=== PATIENT | female | born 1980 | race Caucasian/White ===

== ENCOUNTER 2017-06-09 08:52 | Observation (INO) ==
[2017-06-09] MEDS ORDERED: Ondansetron ODT 4 MG TAB.RAPDIS SL ONE (09:30)
[2017-06-09 10:01] LABS: Basophils % 0.2 %; Eosinophils # 0.2 K/mcL (0.0-0.6); Eosinophils % 1.7 %; Hematocrit 39.9 % (35.3-44.9); Hemoglobin 13.6 g/dL (11.5-15.4); Immature Granulocytes % 0.4 % (0-4); Lymphocytes # 2.3 K/mcL (0.6-4.6); Lymphocytes % 23.7 %; Mean Corpuscular HGB Conc 34.1 g/dL (31.6-35.5); Mean Corpuscular Hemoglobin 29.4 pg (28.0-33.3); Mean Corpuscular Volume 86.2 fL (83.0-100.0); Monocytes # 0.8 K/mcL (0.0-1.3); Monocytes % 8.1 %; Neutrophils # 6.3 K/mcL (1.6-8.9); Platelet Count 225 K/mcL (140-400); Red Blood Count 4.63 M/mcL (3.82-4.97); Red Cell Distribution Width 13.5 % (11.5-14.5); Segmented Neutrophils % 65.9 %
[2017-06-09 10:03] LABS: Bilirubin,Urine Negative (Negative); Blood,Urine Negative (Negative); Clarity,Urine Clear (Clear); Color,Urine Yellow (Yellow); Glucose,Urine (UA) Normal (Normal); Ketones,Urine Negative (Negative); Leukocyte Esterase,Urine Negative (Negative); Nitrite,Urine Negative (Negative); PH,Urine 6.5 pH Units (5.0-8.0); Protein,Urine Trace mg/dL (Neg-Trace); Specific Gravity,Urine 1.025 (1.010-1.025)
[2017-06-09 10:16] LABS: Alanine Aminotransferase 77 Units/L (0-55); Albumin 3.6 g/dL (3.5-5.0); Albumin/Globulin Ratio 0.9 (1.1-2.2); Alkaline Phosphatase 83 Units/L (38-126); Amylase 155 Units/L (25-125); Aspartate Amino Transferase 45 Units/L (5-34); BUN/Creatinine Ratio 12 (6-26); Bilirubin,Total 0.9 mg/dL (0.2-1.2); Blood Urea Nitrogen 10 mg/dL (7-20); Calcium 9.7 mg/dL (8.6-10.8); Carbon Dioxide 24 mEq/L (19-29); Chloride 106 mEq/L (98-109); Glucose 90 mg/dL (70-99); Lipase 416 Units/L (8-78); Osmolality,Calculated 289 (280-300); Potassium 4.4 mEq/L (3.5-4.5); Sodium 140 mEq/L (136-145); Total Protein 7.6 g/dL (6.0-8.3); eGFR For African Americans > 60 (> 60); eGFR For Non-African Americans > 60 (> 60)
--- NOTE | 2017-06-09 10:50 | Emergency Department Note ---
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 She has had several bouts of emesis since then. She remains nauseated. No urinary symptoms although she has not had a urination since the onset of symptoms. No fever no chills. She has not had pain like this before. Her appendix and gallbladder have been surgically removed. She is not drinking alcohol. Pt Subjective Complaint: abdominal pain Pain Scale: 5 - Related Data Home Medications Medication Instructions Recorded Confirmed Levothyroxine [Synthroid] 50 mcg PO DAILY 09/05/15 06/09/17 Allergies Allergy/AdvReac Type Severity Reaction Status Date / Time No Known Allergies Allergy Verified 06/09/17 08:59 Constitutional: Denies: fever, chills Cardiovascular: Denies: chest pain Respiratory: Denies: cough, dyspnea Gastrointestinal: Reports: as per HPI (Habits are daily and soft. She has not had a bowel movement yet today.), abdominal pain, nausea, vomiting. Denies: diarrhea Genitourinary: Denies: urgency, dysuria, frequency, hematuria Musculoskeletal: Reports: as per HPI, back pain. 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 Absent: respiratory distress - Cardiovascular Cardiovascular exam: Present: regular rate, normal rhythm, normal heart sounds - Abdominal Exam Abdominal exam: Present: soft, tenderness (Epigastric pain to palpation.), normal bowel sounds. Absent: distention, guarding, rebound, rigidity - Extremities Exam Extremities exam: Present: normal inspection. Absent: pedal edema - Back Exam Back exam: Absent: CVA tenderness (R), CVA tenderness (L) - Neurological Exam Neurological exam: Present: alert - Psychiatric Psychiatric exam: Present: normal affect, normal mood - Skin Skin exam: Present: warm, dry Course Vital Signs Temperature 97.7 F 06/09/17 09:00 Pulse Rate 78 06/09/17 09:00 Respiratory Rate 16 06/09/17 09:00 Blood Pressure 152/87 06/09/17 09:00 O2 Sat by Pulse Oximetry 99 06/09/17 09:00 Temperature 97.7 F 06/09/17 11:45 Pulse Rate 78 06/09/17 09:00 Respiratory Rate 16 06/09/17 11:45 Blood Pressure 157/80 06/09/17 11:45 O2 Sat by Pulse Oximetry 99 06/09/17 09:00 Oxygen Delivery Oxygen Delivery Room Air Abdominal Pain - MDM Narrative Medical decision making narrative: Pancreatitis. Etiology unknown. Prudent to admit for IV hydration and bowel rest. I spoke with the [facility] and presented the case. He accepted admission. Orders were written by me and Ms. Saenz was transferred to the floor in good condition. She is in agreement with the admission after I explained the pathophysiology of this ailment in layman's terms. - Lab Data Lab results reviewed: Yes I reviewed the patient's lab results. Result diagrams: 06/09/17 09:52 06/09/17 09:52 Lab Results 06/09/17 06/09/17 06/09/17 Range/Units 09:39 09:52 09:52 WBC 9.6 (4.3-11.1) K/mcL RBC 4.63 (3.82-4.97) M/mcL Hgb 13.6 (11.5-15.4) g/dL Hct 39.9 (35.3-44.9) % MCV 86.2 (83.0-100.0) fL MCH 29.4 (28.0-33.3) pg MCHC 34.1 (31.6-35.5) g/dL RDW 13.5 (11.5-14.5) % Plt Count 225 (140-400) K/mcL MPV 9.0 L (9.4-12.4) fL Immature Gran % 0.4 (0-4) % Seg Neutrophils % 65.9 % Lymphocytes % 23.7 % Monocytes % 8.1 % Eosinophils % 1.7 % Basophils % 0.2 % Neutrophils # 6.3 (1.6-8.9) K/mcL Lymphocytes # 2.3 (0.6-4.6) K/mcL Monocytes # 0.8 (0.0-1.3) K/mcL Eosinophils # 0.2 (0.0-0.6) K/mcL Basophils # 0.0 (0.0-0.2) K/mcL Sodium 140 (136-145) mEq/L Potassium 4.4 (3.5-4.5) mEq/L Chloride 106 (98-109) mEq/L Carbon Dioxide 24 (19-29) mEq/L BUN 10 (7-20) mg/dL Creatinine 0.81 (0.57-1.11) mg/dL Est GFR ( Amer) > 60 (> 60) Est GFR (Non-Af Amer) > 60 (> 60) BUN/Creatinine Ratio 12 (6-26) Glucose 90 (70-99) mg/dL Calculated Osmolality 289 (280-300) Calcium 9.7 (8.6-10.8) mg/dL Total Bilirubin 0.9 (0.2-1.2) mg/dL AST 45 H (5-34) Units/L ALT 77 H (0-55) Units/L Alkaline Phosphatase 83 (38-126) Units/L Serum Total Protein 7.6 (6.0-8.3) g/dL Albumin 3.6 (3.5-5.0) g/dL Globulin 4.0 H (2.4-3.5) g/dL Albumin/Globulin Ratio 0.9 L (1.1-2.2) Amylase 155 H (25-125) Units/L Lipase 416 H (8-78) Units/L Urine Color (Yellow) Urine Clarity (Clear) Urine pH (5.0-8.0) pH Units Ur Specific [place] (1.010-1.025) Urine Protein (Neg-Trace) mg/dL Urine Glucose (UA) (Normal) mg/dL Urine Ketones (Negative) mg/dL Urine Blood (Negative) Urine Nitrite (Negative) Urine Bilirubin (Negative) Urine Urobilinogen (Normal) mg/dL Ur Leukocyte Esterase (Negative) Urine Test Negative (Negative) 06/09/17 Range/Units 09:52 WBC (4.3-11.1) K/mcL RBC (3.82-4.97) M/mcL Hgb (11.5-15.4) g/dL Hct (35.3-44.9) % MCV (83.0-100.0) fL MCH (28.0-33.3) pg MCHC (31.6-35.5) g/dL RDW (11.5-14.5) % Plt Count (140-400) K/mcL MPV (9.4-12.4) fL Immature Gran % (0-4) % Seg Neutrophils % % Lymphocytes % % Monocytes % % Eosinophils % % Basophils % % Neutrophils # (1.6-8.9) K/mcL Lymphocytes # (0.6-4.6) K/mcL Monocytes # (0.0-1.3) K/mcL Eosinophils # (0.0-0.6) K/mcL Basophils # (0.0-0.2) K/mcL Sodium (136-145) mEq/L Potassium (3.5-4.5) mEq/L Chloride (98-109) mEq/L Carbon Dioxide (19-29) mEq/L BUN (7-20) mg/dL Creatinine (0.57-1.11) mg/dL Est GFR ( Amer) (> 60) Est GFR (Non-Af Amer) (> 60) BUN/Creatinine Ratio (6-26) Glucose (70-99) mg/dL Calculated Osmolality (280-300) Calcium (8.6-10.8) mg/dL Total Bilirubin (0.2-1.2) mg/dL AST (5-34) Units/L ALT (0-55) Units/L Alkaline Phosphatase (38-126) Units/L Serum Total Protein (6.0-8.3) g/dL Albumin (3.5-5.0) g/dL Globulin (2.4-3.5) g/dL Albumin/Globulin Ratio (1.1-2.2) Amylase (25-125) Units/L Lipase (8-78) Units/L Urine Color Yellow (Yellow) Urine Clarity Clear (Clear) Urine pH 6.5 (5.0-8.0) pH Units Ur Specific [place] 1.025 (1.010-1.025) Urine Protein Trace (Neg-Trace) mg/dL Urine Glucose (UA) Normal (Normal) mg/dL Urine Ketones Negative (Negative) mg/dL Urine Blood Negative (Negative) Urine Nitrite Negative (Negative) Urine Bilirubin Negative (Negative) Urine Urobilinogen 2.0 H (Normal) mg/dL Ur Leukocyte Esterase Negative (Negative) Urine Test (Negative) - Radiology Data Radiology results reviewed: Yes I reviewed the patient's radiology results.
[2017-06-09] MEDS ORDERED: 0.9 % Sodium Chloride 1,000 ML IVC ONE (10:53)
[2017-06-09] MEDS ORDERED: Naloxone 0.4 MG/ML INJ IVP PRN (11:12)
[2017-06-09] MEDS ORDERED: *HR* HYDROmorphone (PF) 1 MG/ML SYRINGE IVP PRN (11:12)
[2017-06-09] MEDS ORDERED: *HR* Promethazine 25 MG/ML VIAL IVP PRN (11:12)
[2017-06-09] MEDS ORDERED: Pantoprazole 40 MG VIAL IVP SCH (12:15)
--- NOTE | 2017-06-09 12:36 | Internal Med History&Physical ---
Date of Encounter: 06/09/17 Time of Encounter: 12:31 Assessment and Plan (1) Pancreatitis Current visit: Yes Status: Acute Possible acute pancreatitis mild symptomatic treatment. NPO for now. CT abdomen requested. Qualifiers: Acute pancreatitis complication: unspecified Qualified Code(s): K85.90 - Acute pancreatitis without necrosis or infection, unspecified (2) Epigastric abdominal pain Current visit: Yes Status: Acute White female with complaints of sharp epigastric pain lasting for more than an hour. Although she complains of shortness of breath associated with this pain had cardiac risks are low. She does not have a family history wholeheartedly cardiac disease. Her personal risks are also minimal for cardiac disease. And to get an EKG and once one test of a troponin to rule out any cardiac issues. -amylase and lipase are high. She denied any alcohol use. Rest of the labs are within normal range. Provisional diagnosis includes acute pancreatitis or gastritis. CT of the abdomen requested will be kept in PO for now. Repeat labs IV fluids and IV PPI pain management as needed however at the present time she does not have any pain except for some dull ache. Clinically stable at the present time. (3) Hypothyroid Current visit: Yes Status: Chronic History of a hypothyroid she is taking Synthroid plan to continue present us. Qualifiers: Hypothyroidism type: unspecified Qualified Code(s): E03.9 - Hypothyroidism , unspecified Internal Medicine - H&P: HPI Chief complaint: Pain epigastric area Admitted From: Emergency Dept History of present illness: Ms. Saenz is a 37 year old female admitted from ER . She started having severe pain in the epigastria area which asted for about an hour . pain was sharp on radiating got better when she layed down . Pain was asssociated with OSB which also lasted until pain subsided. She was at work and was told to go to ER . She denies any weakness in arms or legs , feels hot o cold sweats. No nausea vomiting or fever. She didn't take any medications to relieve her pain . She she states that she took ibuprofen in the morning. Nice taking any unusual food or alcohol. At the present time she feels her pain has subsided but still have feels some dull dull ache in that area. No complaints of form urinary incontinence urgency or frequency. For any bleeding per rectum. Past Med Surg Social Fam HX - Past Medical History Medical history: thyroid disease Psychiatric history: no psych history - Past Surgical History Surgical History: no surgical history, appendectomy (Cholecyctectomy ), c- section - Social History Smoking Status: Never smoker Smokeless Tobacco Status: No Alcohol use: none Drug use: none Internal Medicine - H&P: Meds Levothyroxine [Synthroid] 50 mcg PO DAILY 09/05/15 [History] 3 Allergy/AdvReac Type Severity Reaction Status Date / Time No Known Allergies Allergy Verified 06/09/17 08:59 All Systems PM: A 10-system review of systems was performed and is negative for pertinent findings except as documented above in the HPI. - Constitutional Constitutional: no anorexia, no chills, no excessive sweating, no fatigue, no fever(s), no falls, no malaise, no night sweats, no weakness, no weight gain, no weight loss - EENT Eyes: no blurry vision, no change in vision, no diplopia, no discharge, no floaters, no loss of vision, no pain Ears: no ear discharge Nose, mouth and throat: no bleeding gums, no dental pain, no dry mouth, no dysphagia, no epistaxis, no mouth lesions, no mouth pain, no nasal congestion, no sinus pain, no sinus pressure - Breasts Breasts: no change in shape, no nipple discharge - Cardiovascular Cardiovascular ROS IM: dyspnea, no chest pain, no claudication, no diaphoresis, no dyspnea on exertion, no edema, no lightheadedness, no orthopnea, no palpitations, no syncope Additional comments: She felt that she had some shortness of breath along with this chest pain. - Respiratory Respiratory: no cough, no dyspnea, no hemoptysis, no dyspnea on exertion, no wheezing, no pain on inspiration, no chest congestion, no pain with cough - Gastrointestinal Gastrointestinal: abdominal pain, heartburn, no belching, no bloating, no change in bowel habits, no dyspepsia, no dysphagia, no fecal incontinence, no hematemesis, no hematochezia, no loose stools Additional comments: Hyperion is primarily an epigastric area. sharp in nature. No radiation to back. At the present time her pain has improved however she still feeling some dialect. No association of pain with any particular food or medications. no Association with activity,change in position especially laying down flat does make her pain better. - Genitourinary Genitourinary: no abnormal menses, no abnormal vaginal bleeding, no breast mass , no breast pain, no breast skin changes, no nocturia, no pelvic pain, no urinary urgency, no vaginal discharge, no vaginal dryness, no vaginal odor, no vaginal pruritis Additional comments: No complaints or abnormality in her periods identified - Musculoskeletal Musculoskeletal ROS IM: no back pain, no limited range of motion, no muscle cramps, no muscle weakness, no myalgias - Neurological Neurological ROS: no abnormal gait, no abnormal movements, no abnormal speech, no confusion, no convulsions, no disequilibrium, no dizziness, no focal weakness , no numbness, no tremor(s) - Psychiatric Additional comments: No complaints of suicidal or homicidal ideations. - Constitutional Vitals: Temp Pulse Resp BP Pulse Ox 97.7 F 78 16 157/80 99 06/09/17 11:45 06/09/17 09:00 06/09/17 11:45 06/09/17 11:45 06/09/17 09:00 General appearance: Present: A&O X 3, pleasant, no acute distress - Head Head exam: Present: normal inspection - Eye Eye exam: Present: EOMI, PERRL - ENT ENT exam: Present: mucous membranes moist, normal external ear exam, normal oropharynx, TM's normal bilaterally - Neck Neck exam general surgery: Present: normal inspection, supple. Absent: lymphadenopathy, tenderness, nuchal rigidity - Respiratory Respiratory exam: Present: CTAB. Absent: chest wall tenderness, respiratory distress, rhonchi, stridor, wheezes Additional comments: [place]'s clinical auscultation no wheeze all rhonchi appreciated - Cardiovascular Cardiovascular exam: Present: RRR. Absent: diastolic murmur, distant heart sounds, gallop, JVD - GI/Abdominal GI/Abdominal exam: Present: normal bowel sounds, soft, tenderness. Absent: diminished bowel sounds, distended, firm, guarding, hepatomegaly, hyperactive bowel sounds, pulsatile mass, rebound, rigid Additional comments: Our tenderness is primarily in epigastric area. Is no rebound. No radiation appreciated. - Rectal Rectal exam: Present: deferred - Additional comments: Vaginal Deferred breast examination done in the presence of of RN . No abnormality discharge of mass appreciated. Normal breast examination. - Back Exam Back exam: Present: normal inspection. Absent: CVA tenderness (L), CVA tenderness (R), muscle spasm - Neurological Exam Neurological exam: Present: alert, CN II-XII intact, oriented X3, no focal deficits - Other Additional findings: Pedal edema negative Internal Med - H&P Results - Labs CBC & Chem 7: 06/09/17 09:52 06/09/17 09:52
[2017-06-09] MEDS: 0.9 % Sodium Chloride 1,000 ML IVC SCH ×2 (14:29→21:49)
[2017-06-09] MEDS: Ondansetron 4 MG/2 ML VIAL IVP SCH ×3 (14:42→21:48)
--- NOTE | 2017-06-09 17:13 | Electrocardiograph Report ---
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
[2017-06-10] MEDS: Ondansetron 4 MG/2 ML VIAL IVP SCH ×4 (01:53→12:58)
[2017-06-10] MEDS ORDERED: Acetaminophen 325 MG TABLET PO PRN (04:46)
[2017-06-10] MEDS: 0.9 % Sodium Chloride 1,000 ML IVC SCH (05:02)
[2017-06-10 05:57] LABS: Basophils % 0.3 %; Eosinophils # 0.2 K/mcL (0.0-0.6); Eosinophils % 2.3 %; Hematocrit 36.5 % (35.3-44.9); Hemoglobin 12.2 g/dL (11.5-15.4); Immature Granulocytes % 0.1 % (0-4); Lymphocytes # 2.8 K/mcL (0.6-4.6); Lymphocytes % 35.6 %; Mean Corpuscular HGB Conc 33.4 g/dL (31.6-35.5); Mean Corpuscular Hemoglobin 29.2 pg (28.0-33.3); Mean Corpuscular Volume 87.3 fL (83.0-100.0); Mean Platelet Volume 9.1 fL (9.4-12.4); Monocytes # 0.6 K/mcL (0.0-1.3); Monocytes % 7.5 %; Neutrophils # 4.3 K/mcL (1.6-8.9); Platelet Count 199 K/mcL (140-400); Red Blood Count 4.18 M/mcL (3.82-4.97); Red Cell Distribution Width 13.6 % (11.5-14.5); Segmented Neutrophils % 54.2 %
[2017-06-10 06:13] LABS: Alanine Aminotransferase 75 Units/L (0-55); Albumin/Globulin Ratio 0.9 (1.1-2.2); Alkaline Phosphatase 69 Units/L (38-126); Aspartate Amino Transferase 34 Units/L (5-34); BUN/Creatinine Ratio 9 (6-26); Bilirubin,Total 1.1 mg/dL (0.2-1.2); Blood Urea Nitrogen 7 mg/dL (7-20); Calcium 8.3 mg/dL (8.6-10.8); Carbon Dioxide 22 mEq/L (19-29); Chloride 108 mEq/L (98-109); Globulin 3.3 g/dL (2.4-3.5); Glucose 80 mg/dL (70-99); Lipase 14 Units/L (8-78); Osmolality,Calculated 283 (280-300); Sodium 138 mEq/L (136-145); Total Protein 6.3 g/dL (6.0-8.3); eGFR For African Americans > 60 (> 60); eGFR For Non-African Americans > 60 (> 60)
--- NOTE | 2017-06-10 06:57 | Internal Med Progress Note ---
Date of Encounter: 06/10/17 Time of Encounter: 06:55 - Assessment and plan (1) Pancreatitis Current Visit: Yes Status: Acute Assessment and plan: -CT of the abdomen is unremarkable. Shows mild mesenteric pannicullitis. Although this could cause abdominal abdominal pain the significance of this finding is not very clear at the present. A follow-up as an outpatient might be needed if she has another episode of her pain. Her lipase has come back to normal. Plan is to discontinue IV fluid start on soft diet. If she tolerates her food she could be discharged home. Qualifiers: Acute pancreatitis complication: unspecified Qualified Code(s): K85.90 - Acute pancreatitis without necrosis or infection, unspecified (2) Epigastric abdominal pain Current Visit: Yes Status: Acute Assessment and plan: Epigastric abdominal pain most likely due to mild pancreatitis. She is on IV PPI at the present time will discharge her home on oral medication for one month further follow-up such as need to assess EGD can be done as an outpatient. Clinically she is stable (3) Hypothyroid Current Visit: Yes Status: Chronic Assessment and plan: Continue present medications. Stable Qualifiers: Hypothyroidism type: unspecified Qualified Code(s): E03.9 - Hypothyroidism , unspecified - Subjective Interval history: White female admitted with acute pancreatitis mild she had an eventful night. Her pain has been stable she is complaining of some headaches this morning. For her abdominal pain she received one dose of pain medication only. He denies any shortness of breath nausea vomiting or diarrhea. Overall she feels back to her normal - Constitutional Vitals: Temp Pulse Resp BP Pulse Ox 98 F 77 16 112/73 93 06/10/17 04:30 06/10/17 04:30 06/10/17 04:30 06/10/17 04:30 06/10/17 04:30 General appearance: Present: A&O X 3, pleasant, no acute distress. Absent: severe distress - Head Head exam: Present: normocephalic - Eye Eye exam: Present: EOMI, PERRL - ENT ENT exam: Present: mucous membranes moist, normal oropharynx - Neck Neck exam general surgery: Present: full ROM, supple. Absent: tenderness, nuchal rigidity - Respiratory Respiratory exam: Present: CTAB, stridor. Absent: chest wall tenderness, decreased breath sounds, rhonchi Additional comments: Her respiratory examination is unremarkable. She has air entry on both sides. No rhonchi or feces appreciated - Cardiovascular Cardiovascular exam: Present: RRR. Absent: diastolic murmur, JVD Additional comments: Heart's regular rate and rhythm. no murmur or gallop appreciated. - GI/Abdominal GI/Abdominal exam: Present: normal bowel sounds, soft. Absent: guarding, pulsatile mass, rebound, rigid Additional comments: Her abdominal examination is unremarkable today. There is no epigastric tenderness. Sounds a positive. Internal Medicine: Result - Labs CBC & Chem 7: 06/10/17 05:20 06/10/17 05:20 Labs: Short CBC 06/10/17 Range/Units 05:20 WBC 7.8 (4.3-11.1) K/mcL Hgb 12.2 (11.5-15.4) g/dL Hct 36.5 (35.3-44.9) % Plt Count 199 (140-400) K/mcL Neutrophils # 4.3 (1.6-8.9) K/mcL BMP 06/10/17 05:20 Sodium 138 Potassium 4.0 Chloride 108 Carbon Dioxide 22 BUN 7 Creatinine 0.78 Glucose 80 Calcium 8.3 L Liver Function 06/10/17 Range/Units 05:20 Total Bilirubin 1.1 (0.2-1.2) mg/dL AST 34 (5-34) Units/L ALT 75 H (0-55) Units/L Alkaline Phosphatase 69 (38-126) Units/L Albumin 3.0 L (3.5-5.0) g/dL - Impressions Impressions Abdomen CT 06/09/17 12:59 IMPRESSION: 1. No CT findings of acute pancreatitis at this time 2. Mesenteric panniculitis 3. Status post cholecystectomy and appendectomy D/ / Kumar Bay MD / Kumar Bay MD Interpreting Provider: Kumar Bay MD Consult Discharge Plan - Plan Referrals: Ebony Connor, [facility] [Primary Care Provider] -
--- NOTE | 2017-06-10 08:06 | Discharge Summary ---
Date of Encounter: 06/10/17 Time of Encounter: 08:02 - Discharge Diagnosis (1) Pancreatitis Priority: Primary Status: Acute Comments: White female was admitted with that complaints of acute abdominal pain. Her amylase and lipase for increased. She was admitted and treated as a mild acute pancreatitis. City of the abdomen showed mild inflammation and small ball consistent with them mesenteric panniculities. Pancreas was within normal no dilation (pancreatic no signs of inflammation radio graphically. Her EKG was within normal limits. She was treated symptomatically and has improved the present time she is pain-free and her lipase is within normal limits. Cause of his cause of pancreatitis could not be identified. Qualifiers: Acute pancreatitis complication: unspecified Qualified Code(s): K85.90 - Acute pancreatitis without necrosis or infection, unspecified (2) Epigastric abdominal pain Priority: Secondary Status: Acute Comments: Epigastric pain slightly due to pain due to mild pancreatitis. Gastritis could not be ruled out. Patient being treated symptomatically with PPI (3) Hypothyroid Priority: Secondary Status: Chronic Comments: Stable continue present medication. Qualifiers: Hypothyroidism type: unspecified Qualified Code(s): E03.9 - Hypothyroidism , unspecified - Discharge Medications Home Medications: Levothyroxine [Synthroid] 75 mcg PO 0630 06/09/17 [History] Omeprazole [PriLOSEC] 20 mg PO DAILY #30 cap 06/10/17 [Rx] Allergies/Adverse Reactions: 3 Allergy/AdvReac Type Severity Reaction Status Date / Time No Known Allergies Allergy Verified 06/09/17 08:59 Procedures/tests Complete & Pending: Procedures Performed prior 72 hours Category Date Time Status CT abdomen w iv no oral [CT] Routine Cat Scan 06/09/17 12:59 Completed ECG 12 lead ECG [ECG] Routine Y 06/09/17 13:09 Completed Date of admission: 06/09/17 11:36 Primary care physician: Ebony Connor CNP Discharging clinician: Damian Lemus Anticipated date of discharge: 06/10/17 - Patient Status Disposition: Home, Self-Care Condition: Good Overall status at discharge: patient is back to baseline - Discharge Instructions Follow Up With: Ebony Connor CNP [Primary Care Provider] - Additional Instructions: Follow-up with primary care provider in one week - Diet and Activity Diet: advance to your usual diet Hospital course: Ms. Saenz is a 37 year old female who was admitted with epigastric pain. Her lipase and [place] were high. She was admitted with the diagnosis of pancreatitis she was NPO IV fluid was given. Was also started on intravenous PPI. CT of the abdomen showed normal pancreatic duct without obstruction no signs of inflammation but noted. There was mild thickening of Ms. small bowel mesentery the significance is not very clear. At the present time she is pain- free. Plan is to start oral feed. She tolerates she will be discharged home. This day she was also ruled out for ND. Her medication for hypothyroidism must work continued. - Time Spent with Patient Total time spent providing and/or coordinating discharge services: - Constitutional Vitals: Temp Pulse Resp BP Pulse Ox 97.9 F 68 18 119/78 95 06/10/17 07:58 06/10/17 07:58 06/10/17 07:58 06/10/17 07:58 06/10/17 07:58 General appearance: Present: A&O X 3, pleasant, no acute distress. Absent: severe distress - Head Head exam: Present: normocephalic - Eye Eye exam: Present: EOMI, PERRL - ENT ENT exam: Present: mucous membranes moist, normal oropharynx - Neck Neck exam general surgery: Present: supple - Respiratory Respiratory exam: Present: CTAB. Absent: decreased breath sounds Additional comments: She has equal air entry on both lungs. No bronchi or wheeze [place] is within normal limits - Cardiovascular Cardiovascular exam: Present: RRR. Absent: irregular rhythm, JVD Additional comments: Her heart is regulated rate and rhythm no murmurs of [place] appreciated. - GI/Abdominal GI/Abdominal exam: Present: normal bowel sounds, soft. Absent: distended, firm , guarding, rebound Additional comments: Her abdominal examination is unremarkable today. There is no epigastric tenderness. Abdominal is soft. Bowel sounds are positive - Neurological Exam Neurological exam: Present: alert, CN II-XII intact, oriented X3, reflexes normal, no focal deficits Additional comments: Her neurological examination is non-focus. She is alert oriented and cooperative. Motor functions are normal on both limbs upper and lower
[2017-06-10] MEDS ORDERED: Pantoprazole 40 MG VIAL IVP SCH (09:00)
[2017-06-10 16:21] VITALS: BP 100/65
== END 2017-06-10 19:09 | disposition home or self-care (01) ==
LOC: EMEROOGRE 08:52 → INPGRE 08:52
PROVIDERS: ADMIT Internal Medicine; ATTEND Internal Medicine